=== PATIENT | male | born 1955 | race Caucasian/White ===

== ENCOUNTER 2021-11-01 21:26 | Emergency (ER) | payer MEDICARE, MEDICAID, SELFPAY ==
[2021-11-01 21:27] VITALS: BP 119/78; PULSE 54; RESP 16; TEMP 36.4; O2SAT 97; BMI 24.3
--- NOTE | 2021-11-01 21:34 | CT_ITS ---
EXAM: CT Cervical Spine Without Intravenous Contrast CLINICAL INDICATION: 66 years old, Male; FALL TECHNIQUE: Helically acquired images were obtained of the cervical spine without intravenous contrast. 2D reformatted images were reviewed. This CT exam was performed using one or more of the following dose reduction techniques: automated exposure control, adjustment of the mA and/or kV according to patient size, and/or use of iterative reconstruction technique. This report was created using [employer] technology. COMPARISON: None. FINDINGS: Vertebrae: Unremarkable. No fracture. No traumatic subluxation. No discrete lytic or blastic abnormality. Normal alignment. Normal craniocervical junction and cervicothoracic junction. Discs/spinal canal/neural foramina: Degenerative disc disease lower cervical spine. No critical stenosis. Soft tissues: Unremarkable. No prevertebral soft tissue swelling. Vasculature: Atherosclerotic disease. Lymph nodes: Unremarkable. No cervical adenopathy. Lung apices: Unremarkable as visualized. Clear. CT/Spine Cervical without Contras IMPRESSION: No acute findings in the cervical spine. Degenerative changes as described. Electronically Signed: Gulshan Granados MD at 22:49 EST Tel , Service support ,
--- NOTE | 2021-11-01 21:34 | CT_ITS ---
STUDY: CT BRAIN WITHOUT CONTRAST REASON FOR EXAM: Male, 66 years old. LACERATION TO NOSE AND INNER LT EYEBROW,ETOH,INABILITY TO WALK UNASSISTED RADIATION DOSAGE (If Supplied By Facility): CTDIvol = ( 44.99 ) mGy, DLP = ( 863.60 ) mGycm TECHNIQUE: Transaxial CT imaging of the brain was performed without administration of intravenous contrast material. Individualized dose optimization techniques were used for this CT. COMPARISON: None. FINDINGS: Normal soft tissue structures. Normal calvarium. 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 There is mild cerebral atrophy with widening of the extra-axial spaces and ventricular dilatation. Normal white matter tracts of the cerebral hemispheres. Normal basal ganglia and thalami. Normal brainstem. Normal cerebellum. There is no intracranial hemorrhage. There are no findings of an acute ischemic infarction. Normal visualized paranasal sinuses. CT/Brain/Head without Contrast IMPRESSION: Chronic involutional changes of the brain. Electronically Signed: Severo Castro MD at 23:24 EST , Service support ,
--- NOTE | 2021-11-02 02:30 | EDS_ITS ---
HPI History of Present Illness Chief Complaint: Laceration Narrative Narrative: Patient is a 66-year-old male who states that he was walking when he tripped and fell striking his head/face. He denies any loss of consciousness or blood thinner use. He states that he is concerned he may need sutures because of the injury and secondary to this presents for evaluation. [facility] Medical History (Updated 11/02/21 @ 02:[address] Omar Norman, DO) HTN (hypertension) Allergy/AdvReac Type Severity Reaction Status Date / Time No Known Allergies Allergy Verified 11/01/21 21:26 Social History (Updated 11/01/21 @ 21:30 by Alicia Tejada) Smoking Status: Current every day smoker tobacco type: cigarettes alcohol intake: current ROS ROS ED Constitutional Constitutional ED: Denies chills or fever(s) Eyes Eyes: Denies change in vision ENT ENT ED: Denies sore throat Cardiovascular Cardiovascular: Denies chest pain Respiratory/Chest Respiratory/Chest: Denies cough or dyspnea Gastrointestinal Gastrointestinal: Denies abdominal pain, diarrhea, nausea or vomiting Genitourinary Genitourinary ED: Denies dysuria Musculoskeletal Musculoskeletal: Denies back pain, myalgias or neck pain Integumentary Reports other Details: Positive facial laceration ; Denies rash Neurologic Neurologic: Denies headache(s) Hematologic/Lymphatic Hematologic/Lymphatic: Denies easy bleeding or easy bruising EXAM Physical Exam Const Vital Signs: 11/01/21 21:27 11/02/21 02:38 Temperature 97.6 F L Temperature Source Temporal Pulse Rate 54 L 79 Respiratory Rate 16 18 Blood Pressure 119/78 114/68 Blood Pressure Mean 91 Pulse Ox 97 96 Oxygen Delivery Method Room Air Positive well nourished and well developed General Appearance ED: well developed HEENT Reports moist mucous membranes HEENT Narrative: Patient has a linear subcutaneous layer deep laceration along the midportion of the forehead. The wound is 2.5 cm in length. There is minimal ooze of blood and no foreign body. No signs of depressed or basilar skull fracture. Patient also has mild soft tissue swelling and a superficial abrasion to the bridge of the nose. No septal hematoma noted Eyes PERRL and EOMs intact bilaterally Eyes Narrative: No hyphema Neck supple Neck Narrative: No bony deformity or step-off of the cervical spine no midline pain with palpation Chest Wall palpation of chest normal Resp normal respiratory effort and clear to auscultation bilaterally Cardio regular rate and regular rhythm GI normal to inspection, nondistended, normoactive bowel sounds, non-tender, non- distended and no masses Auscultation: normoactive bowel sounds Palpation: soft Back/Spine Back/Spine Narrative: No bony deformity or step-off of the thoracic or lumbar spine no midline pain with palpation Extremity normal to inspection Neuro oriented x3 and CN's II-XII intact bilaterally Sensorium / Orientation: alert Motor Exam: strength 5/5 throughout Psych mental status grossly normal Skin no rashes or lesions noted Skin Narrative: Laceration to the forehead as documented above MDM MDM MDM Narrative Medical decision making narrative: Patient reported a mechanical fall so I felt no need for cardiac or syncope work-up. With the head trauma CTs were obtained which revealed no acute traumatic finding. Therefore the patient's wound was closed as documented below. Following this as the wound has been closed and there are no underlying traumatic findings he is safe for discharge Patient had his forehead wound cleaned with chlorhexidine. It was anesthetized with 5 mils of 2% lidocaine with epinephrine in local fashion. The wound was copiously irrigated with normal saline. Then eight 5-0 Ethilon sutures were placed in simple interrupted fashion. This brought the wound together good approximation. Patient tolerated procedure well without complication Radiography Diagnostic Testing: Clinical Impression(s) from Imaging Studies Brain CT 11/01/21 21:34 IMPRESSION: Chronic involutional changes of the brain. Electronically Signed: Severo Castro MD at 23:24 EST , Service support , Cervical Spine CT 11/01/21 21:34 IMPRESSION: No acute findings in the cervical spine. Degenerative changes as described. Electronically Signed: Gulshan Granados MD at 22:49 EST Tel , Service support , Discharge Plan Triage Chief Complaint: Laceration ED Provider: Omar Norman Dx/Rx/DC Orders Clinical Impression: Closed head injury, Facial laceration Instructions: ED Head Injury (Adult), ED Laceration: All Closures Primary Care Provider: Care Physician,No Primary Referrals: Darshan Wilkerson MD [STAFF PHYSICIAN] - 5-7 Days Care Physician,No Primary [Primary Care Provider] - Activity Restrictions/Additional Instructions: Please see your family doctor or return to the ER in 5 to 7 days for suture removal Disposition Disposition: Home, Self Care Discharge Date/Time: 11/02/21 02:38
[2021-11-02 02:38] VITALS: BP 114/68; PULSE 79; RESP 18; O2SAT 96
== END 2021-11-02 02:38 | disposition home or self-care (01) ==
PROVIDERS: Emergency Provider Emergency Medicine
DX: S01.21XA Laceration without foreign body of nose, initial encounter (principal); S01.81XA Laceration without foreign body of other part of head, initial encounter; W01.0XXA Fall on same level from slipping, tripping and stumbling without subsequent striking against object, initial encounter; Y93.01 Activity, walking, marching and hiking; F17.210 Nicotine dependence, cigarettes, uncomplicated; I10 Essential (primary) hypertension; M47.812 Spondylosis without myelopathy or radiculopathy, cervical region
CPT/HCPCS: 12011; 70450; 72125; 99285

== ENCOUNTER 2021-11-08 09:13 | Emergency (ER) | payer MEDICARE, MEDICAID, SELFPAY ==
[2021-11-08 09:13] VITALS: BP 171/92; PULSE 88; RESP 18; TEMP 36.7; O2SAT 96; BMI 25.1
--- NOTE | 2021-11-08 10:36 | EX.ED.DYSGE1 ---
HPI History of Present Illness Chief Complaint: Suture Remv Narrative Narrative: 66-year-old male presenting for suture removal. He apparently had a laceration to the left side of his forehead 6 days ago. He states his wound is been healing well. No drainage or discharge. No erythema. No systemic signs or symptoms. [facility] Medical History HTN (hypertension) Home Medications amlodipine 10 mg PO DAILY 11/08/21 [History Last Taken Unknown] Allergy/AdvReac Type Severity Reaction Status Date / Time No Known Allergies Allergy Verified 11/08/21 09:17 Social History Smoking Status: Current every day smoker tobacco type: cigarettes alcohol intake: current ROS ROS ED Constitutional Constitutional ED: Denies chills or fever(s) Eyes Eyes: Denies blurry vision or diplopia ENT ENT ED: Denies rhinorrhea or sore throat Cardiovascular Cardiovascular: Denies chest pain or palpitations Respiratory/Chest Respiratory/Chest: Denies dyspnea Gastrointestinal Gastrointestinal: Denies abdominal pain or nausea Genitourinary Genitourinary ED: Denies dysuria or hematuria Musculoskeletal Musculoskeletal: Denies arthralgias or myalgias Integumentary Reports other Details: Laceration with sutures in place ; Denies abscess or rash Neurologic Neurologic: Denies headache(s) or weakness EXAM Physical Exam Const Vital Signs: 11/08/21 09:13 Temperature 98.0 F Temperature Source Temporal Pulse Rate 88 Respiratory Rate 18 Blood Pressure 171/92 H Blood Pressure Mean 118 Pulse Ox 96 Oxygen Delivery Method Room Air Positive well nourished General Appearance ED: NAD HEENT Reports moist mucous membranes Negative for trauma Eyes PERRL and EOMs intact bilaterally Resp normal respiratory effort and clear to auscultation bilaterally Cardio regular rate and regular rhythm Neuro oriented x3 and CN's II-XII intact bilaterally Sensorium / Orientation: alert Psych mental status grossly normal Skin Skin Narrative: Laceration to left forehead adjacent to the bridge of the nose well-healing. Wound margins are approximated. [address] MDM MDM MDM Narrative Medical decision making narrative: 66-year-old male presenting with need for suture removal. Per previous ER physician's note 8 sutures were placed. I only see 6. Patient denies removing any sutures. Patient's wound was cleaned. Suture removal kit was used to remove all 6 sutures. Patient tolerated procedure well. Dressing was placed over the wound. He is given wound care instructions and return precautions. Patient stable for discharge. Impression: 1. Suture removal Lab Data Attestation: I reviewed the patient's lab results. Discharge Plan Triage Chief Complaint: Suture Remv ED Provider: Danilo Sumner Dx/Rx/DC Orders Instructions: ED Stitches/Staple Removal No ... Prescriptions: No Action amlodipine 10 mg tablet 10 mg PO DAILY RF: 0 Primary Care Provider: Care Physician,No Primary Referrals: Care Physician,No Primary [Primary Care Provider] - Disposition Disposition: Home, Self Care Discharge Date/Time: 11/08/21 10:16
== END 2021-11-08 10:16 | disposition home or self-care (01) ==
LOC: ED 10:01
PROVIDERS: Emergency Provider Student in an Organized Health Care Education/Training Program
DX: Z48.02 Encounter for removal of sutures (principal); I10 Essential (primary) hypertension; F17.210 Nicotine dependence, cigarettes, uncomplicated; Z79.899 Other long term (current) drug therapy
CPT/HCPCS: 99283

== ENCOUNTER 2022-09-03 12:36 | Inpatient (IN) | payer MEDICARE, MEDICAID, SELFPAY ==
[2022-09-03 12:38] VITALS: BP 120/85; PULSE 94; RESP 17; TEMP 36.4; O2SAT 99; BMI 26.5
--- NOTE | 2022-09-03 13:25 | RAD_ITS ---
STUDY: X-RAY - LEFT KNEE REASON FOR EXAM: Male, 67 years old. Increasing left knee pain following injury. TECHNIQUE: 2 view(s) of the knee. COMPARISON: None. FINDINGS: Normal visualized distal femur. There is evidence of a nondisplaced fracture of the lateral tibial plateau. There is also evidence of a nondisplaced transverse fracture of the proximal fibular neck. Normal medial femorotibial compartment. Normal lateral femorotibial compartment. Normal patellofemoral articulation. Small joint effusion. 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 RAD/Knee 1 or 2 Views IMPRESSION: Nondisplaced fracture of the left lateral tibial plateau as well as the proximal left fibula with a joint effusion. Electronically Signed: Jos Burks MD at 14:05 EDT ,
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
[2022-09-03 14:07] VITALS: BP 130/72; O2SAT 98
[2022-09-03] MEDS: Diphth,Pertuss(Acell),Tet Vac 0.5 ML Vial IM (14:12)
--- NOTE | 2022-09-03 14:18 | CT_ITS ---
STUDY: CT LEFT KNEE WITHOUT CONTRAST REASON FOR EXAM: Male, 67 years old. Tibial plateau fracture RADIATION DOSAGE (If Supplied By Facility): CTDIvol = ( 15.35 ) mGy, DLP = ( 461.22 ) mGycm TECHNIQUE: Transaxial CT imaging of the knee was performed. Coronal and sagittal images were reformatted. Individualized dose optimization techniques were used for this CT. COMPARISON: None. FINDINGS: Normal medial femoral condyle and medial tibial plateau. There is preservation of the articular joint space of the medial knee compartment. Nondisplaced fracture involving the lateral tibial plateau extending medially from the intercondylar eminence to the lateral metaphysis of the proximal tibia. There is also evidence of a nondisplaced fracture of the fibular neck. There is preservation of the articular joint space of the lateral knee compartment. Normal proximal tibiofibular articulation. Joint effusion. The quadriceps tendon is grossly normal. The patellar tendon is grossly normal. Normal Hoffa''s fat pad. Soft tissue swelling. CT/Extremity Lower without Contra IMPRESSION: Nondisplaced lateral tibial plateau fracture as described above with evidence of a joint effusion. Nondisplaced transverse fracture of the proximal fibula. Soft tissue swelling. Electronically Signed: Jos Burks MD at 14:44 EDT ,
--- NOTE | 2022-09-03 14:27 | NURSING ---
DR RIVERA FOR DR GODINEZ
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
--- NOTE | 2022-09-03 14:52 | NURSING ---
301 OBS WHITE LEFT TIBIAL PLATEAU FX, INABILITY TO AMBULATE, INABILITY TO CARE FOR SELF
[2022-09-03] MEDS: Morphine 4 MG/ML Syringe IV (14:54)
[2022-09-03] MEDS: Ondansetron 4 MG/2 ML Vial IV (14:54)
[2022-09-03 14:57] VITALS: BP 104/70; PULSE 90; RESP 17; TEMP 36.4; O2SAT 99
[2022-09-03 15:12] LABS: Absolute Lymphocyte Count 1.48 X10^3/uL (0.83-4.51); Absolute Neutrophil Count 9.2 X10^3/uL (2.0-7.7); Basophil# 0.07 X10^3/uL; Basophil% 0.6 % (0-1); Eosinophil# 0.08 X10^3/uL; Eosinophils% 0.7 % (0-5); Hematocrit 48.4 % (40-54); Hemoglobin 16.3 g/dL (13.0-16.5); Lymphocyte # 1.48 X10^3/ul (0.83-4.51); Lymphocyte % 12.3 % (19-41); Mean Corp Hgb Conc 33.7 g/dL (32-36); Mean Corpuscular Hgb 30.7 pg (27.0-32.0); Mean Corpuscular Volume 91.1 fL (80-94); Mean Platelet Vol. 9.3 fl (6.2-12.0); Monocyte# 1.18 X10^3/uL; Monocyte% 9.8 % (0-10); NRBC Flagged by Analyzer 0 % (0-5); Neutrophil # 9.19 X10^3/uL (2.7-7.7); Neutrophil % 76.1 % (47-70); Platelet Count 499 K/mm3 (150-450); RBC Distribution Width SD 53.1 fl (35.1-43.9); Red Blood Count 5.31 M/mm3 (4.6-6.2); White Blood Count 12.1 K/mm3 (4.4-11.0)
[2022-09-03 15:23] LABS: Anion Gap 11 (5-15); BUN 22 mg/dL (7-18); BUN/Creat Ratio 21.4 RATIO (10-20); Calcium,Total 9.7 mg/dL (8.5-10.1); Chloride 101 mmol/L (98-107); Creatinine, Serum 1.03 mg/dL (0.70-1.30); EST Glomerular Filtration Rate 77 mL/min (>60); Est Glom Filt Rate - Afr Amer 93 mL/min (>60); Estimated Creatinine Clearance 65.07 ml/min; Glucose 102 mg/dL (74-106); Potassium 3.5 mmol/L (3.5-5.1); Sodium Level 137 mmol/L (136-145)
[2022-09-03 15:31] VITALS: BMI 25.3
[2022-09-03 15:32] VITALS: BP 140/55; PULSE 64; RESP 16; TEMP 36.3; O2SAT 97
[2022-09-03] MEDS: Acetaminophen 325 MG Tablet 650 MG PO ×2 (16:48→20:58)
[2022-09-03] MEDS: oxyCODONE 5 MG Tablet PO (16:48)
[2022-09-03 17:12] VITALS: O2SAT 98
[2022-09-03 20:21] VITALS: BP 96/67; PULSE 78; RESP 16; TEMP 36.6; O2SAT 97
[2022-09-04] VITALS (13 sets, daily range): BP systolic 106–130; BP diastolic 51–76; PULSE 37–82; RESP 14–19; TEMP 36.2–37; O2SAT 96–100
[2022-09-04 05:01] LABS: Absolute Lymphocyte Count 2.12 X10^3/uL (0.83-4.51); Absolute Neutrophil Count 5.4 X10^3/uL (2.0-7.7); Basophil% 1.1 % (0-1); Eosinophil# 0.35 X10^3/uL; Eosinophils% 3.8 % (0-5); Hematocrit 43.3 % (40-54); Hemoglobin 14.4 g/dL (13.0-16.5); Lymphocyte # 2.12 X10^3/ul (0.83-4.51); Lymphocyte % 22.9 % (19-41); Mean Corp Hgb Conc 33.3 g/dL (32-36); Mean Corpuscular Hgb 30.8 pg (27.0-32.0); Mean Corpuscular Volume 92.5 fL (80-94); Mean Platelet Vol. 9.8 fl (6.2-12.0); Monocyte# 1.21 X10^3/uL; Monocyte% 13.1 % (0-10); NRBC Flagged by Analyzer 0 % (0-5); Neutrophil # 5.44 X10^3/uL (2.7-7.7); Neutrophil % 58.6 % (47-70); Platelet Count 453 K/mm3 (150-450); RBC Distribution Width SD 54.6 fl (35.1-43.9); Red Blood Count 4.68 M/mm3 (4.6-6.2); White Blood Count 9.3 K/mm3 (4.4-11.0)
[2022-09-04] MEDS: Mupirocin Ointment 22gm Tube 1 APPLIC TOPICAL ×3 (05:35→21:28)
[2022-09-04 05:36] LABS: ALB/GLOB Ratio 0.7 RATIO (0.9-2.4); AST(SGOT) 28 U/L (15-37); Alanine Aminotransfer ALT/SGPT 24 U/L (16-61); Alkaline Phosphatase 61 U/L (45-117); Anion Gap 9 (5-15); BUN 38 mg/dL (7-18); BUN/Creat Ratio 19.9 RATIO (10-20); Chloride 99 mmol/L (98-107); Creatinine, Serum 1.91 mg/dL (0.70-1.30); EST Glomerular Filtration Rate 38 mL/min (>60); Est Glom Filt Rate - Afr Amer 45 mL/min (>60); Estimated Creatinine Clearance 35.09 ml/min; Globulin 4.2 g/dL (2.2-4.2); Glucose 97 mg/dL (74-106); Potassium 3.4 mmol/L (3.5-5.1); Protein, Total 7.2 g/dL (6.4-8.2); Sodium Level 134 mmol/L (136-145)
[2022-09-04] MEDS: 0.9% Saline Lock 10 ML Syringe IV (08:09)
[2022-09-04] MEDS: 0.9% Normal Saline 1,000 ML 125 ML IV ×2 (08:10→16:10)
[2022-09-04] MEDS: amLODIPine 10 MG Tablet PO (10:18)
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
--- NOTE | 2022-09-04 14:02 | CASEMGMT ---
Discharge Heavy Equipment Diesel Mechanic Mary ching/armond assistant controller sent referral to [facility] and [facility] via [facility]. Will follow up. Plan: [facility] vs [facility], Waiting Acceptance Mary Sierra Discharge Heavy Equipment Diesel Mechanic
[2022-09-04] MEDS: Acetaminophen 325 MG Tablet 650 MG PO (19:24)
[2022-09-05] VITALS (13 sets, daily range): BP systolic 128–144; BP diastolic 68–90; PULSE 54–86; RESP 14–18; TEMP 36.4–36.9; O2SAT 97–981
[2022-09-05] MEDS: Mupirocin Ointment 22gm Tube 1 APPLIC TOPICAL ×3 (05:04→21:09)
[2022-09-05] MEDS: Acetaminophen 325 MG Tablet 650 MG PO ×2 (05:27→19:24)
--- NOTE | 2022-09-05 07:58 | CASEMGMT ---
Discharge Water Pollution Specialist Mary arizmendi title assistant reached out to Josette at the [facility] regarding referral. Will follow up. Plan: [facility] vs [facility], Waiting Acceptance Mary Sierra Discharge Water Pollution Specialist
--- NOTE | 2022-09-05 09:22 | CASEMGMT ---
Discharge Associate Accountant Patient 2nd choice [facility] Accepted patient. Still waiting on patient 1st choice [facility]. RADHA Martinez notified. Mary Sierra Discharge Associate Accountant
[2022-09-05] MEDS: amLODIPine 10 MG Tablet PO (09:56)
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
--- NOTE | 2022-09-05 11:48 | NURSING ---
RN and I we undid the immobilizer to observe the skin and to bathe him and we found an abrasion on his left posterior lateral thigh, Suni came in and recommended Mepilex.
[2022-09-05 12:17] LABS: Anion Gap 8 (5-15); BUN 18 mg/dL (7-18); BUN/Creat Ratio 21.2 RATIO (10-20); Calcium,Total 8.6 mg/dL (8.5-10.1); Chloride 103 mmol/L (98-107); Creatinine, Serum 0.85 mg/dL (0.70-1.30); EST Glomerular Filtration Rate 95 mL/min (>60); Est Glom Filt Rate - Afr Amer 115 mL/min (>60); Estimated Creatinine Clearance 78.84 ml/min; Glucose 102 mg/dL (74-106); Potassium 4.2 mmol/L (3.5-5.1); Sodium Level 135 mmol/L (136-145)
--- NOTE | 2022-09-05 12:27 | CASEMGMT ---
Social Work SW placed call to [facility] to check on status of referral. SW was informed that pt has been declined. [facility] has accepted pt. Physician updated on accepting facility. Pt notified. GABRIELA Castro
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
--- NOTE | 2022-09-05 14:05 | PHA.DC.MR ---
Pharmacy Service has performed discharge medication reconciliation for this patient. The patient's discharge medication list was reviewed for discrepancies and discrepancies were resolved. Home Medications amlodipine 10 mg tablet 10 mg PO DAILY bp 11/08/21 oxycodone 5 mg tablet 5 mg PO Q4H PRN PRN Pain Score 4-5 3 days #18 tabs 09/05/22
--- NOTE | 2022-09-05 16:08 | CASEMGMT ---
Social Work Per physician, pt is ready for discharge. RADHA met with pt to inform of discharge. Pt upset and does not want to leave as he does not have clothes or wallet or checkbook. Pt has no family or friends who can go to [facility] to obtain personal items. Phone call placed to [employer] and asked to speak with branch office administrator. Industrial Psychology Professor out of building and no one else available to speak with SW. Phone call to RADHA Callejas at [facility] who confirms she will assist pt in obtaining his belongings on Thursday and will provide clothes for pt over the weekend. Pt informed of this and is agreeable to discharge. Transportation arranged with [facility] via [facility] for 1999 pickup. [facility] did confirm they can provide a wheel chair with an elevating leg rest. Pt, nursing and [place] at [facility] updated on discharge time. PASRR completed in [facility]. Plan: [facility], skilled level of care GABRIELA Castro
--- NOTE | 2022-09-05 18:16 | NURSING ---
REPORT CALLED TO MOHIT HERNANDEZ
--- NOTE | 2022-09-05 19:19 | PCA ---
[facility] CALLED AND SAID THEY WILL NOT PICK PATIENT UP UNTIL 930. I CALLED AND TOLD [facility] THAT HE WILL NOT ARRIVE UNTIL 1030 TONIGHT TO NURSE JOSSIE
== END 2022-09-05 22:45 | disposition skilled nursing facility (03) | DRG 563 ==
LOC: ED 14:36 → MS3 14:48
PROVIDERS: Admitting Provider Family Medicine; Emergency Provider Emergency Medicine; PCP Nurse Practitioner; Visit Provider Student in an Organized Health Care Education/Training Program
DX: S82.142A Displaced bicondylar fracture of left tibia, initial encounter for closed fracture (principal); R62.7 Adult failure to thrive; I10 Essential (primary) hypertension; F17.210 Nicotine dependence, cigarettes, uncomplicated; S82.402A Unspecified fracture of shaft of left fibula, initial encounter for closed fracture; V40.7XXA Person on outside of car injured in collision with pedestrian or animal in traffic accident, initial encounter; Y92.410 Unspecified street and highway as the place of occurrence of the external cause
CPT/HCPCS: 36415; 73560; 73700; 80048; 80053; 85025; 87426; 90715; 97110; 97116; 97162; 97166; 97530; 97535; 99251; 99285; 99406; J7030; A4216; G0463; J2405

== ENCOUNTER 2023-09-03 23:19 | Emergency (ER) | payer MEDICARE, MEDICAID, SELFPAY ==
[2023-09-03 23:20] VITALS: BP 145/85; PULSE 54; RESP 18; TEMP 36.3; O2SAT 97; BMI 27.7
--- NOTE | 2023-09-03 23:36 | CT_ITS ---
STUDY: CT BRAIN WITHOUT CONTRAST REASON FOR EXAM: Male, 68 years old. Trauma RADIATION DOSAGE (If Supplied By Facility): CTDIvol = ( 44.99 ) mGy, DLP = ( 1452.58 ) mGycm TECHNIQUE: Transaxial CT imaging of the brain was performed without administration of intravenous contrast material. Individualized dose optimization techniques were used for this CT. Artificial intelligence picked up the meningioma within the right frontal lobe stable since prior study. COMPARISON: October 02, 2021 CT head FINDINGS: There is visualized left frontal superficial soft tissue edema. Normal calvarium. There is a right frontal well-circumscribed parafalcine mass measuring 1.9 x 1.9 cm stable since prior study compatible with a stable partially calcified meningioma. Normal white matter tracts of the cerebral hemispheres. Normal basal ganglia and thalami. Normal brainstem. There is mild cerebellar atrophy. There is no intracranial hemorrhage. There are no findings of an acute ischemic infarction. Normal visualized paranasal sinuses. CT/Brain/Head without Contrast IMPRESSION: Mild left frontal superficial soft tissue edema. No visualized acute hemorrhage infarct or edema. Stable right frontal parafalcine 1.9 x 1.9 cm partially calcified meningioma. Electronically Signed: Shiloh Chu MD at 0:41 EDT ,
--- NOTE | 2023-09-03 23:36 | CT_ITS ---
INDICATION: Trauma EXAMINATION: CT CERVICAL SPINE - CT Spine Cervical W/O Contrast Injection TECHNIQUE: Helically acquired images were obtained of the cervical spine with sagittal and coronal reconstructed images. Individualized dose optimization techniques were used for this CT. IV contrast dosage and agent: None. COMPARISON: 11/01/2021 CT. FINDINGS: VERTEBRAE: No fracture or subluxation. The craniocervical junction is unremarkable. Moderate degenerative changes, worse at C6-C7. NECK SOFT TISSUES: The prevertebral soft tissues are unremarkable. No pathologically enlarged lymph nodes. LUNG APICES: Clear. CT/Spine Cervical without Contras IMPRESSION: No fracture or subluxation. Electronically Signed: Eren Coronado DO at 0:47 EDT ,
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
[2023-09-04] MEDS: Lidocaine/Epi/Tetracaine 50 ML 1 APPLIC TOPICAL (00:05)
[2023-09-04] MEDS: Lidocaine 1% /Epi 1:100 (20ml) 20 ML Vial INFILT (02:03)
--- NOTE | 2023-09-04 02:44 | ED.RN ---
pt discharged home with friend Stanislaw. stanislaw to give ride home.
== END 2023-09-04 02:45 | disposition home or self-care (01) ==
PROVIDERS: Emergency Provider Emergency Medicine; PCP Internal Medicine; Visit Provider Emergency Medicine
DX: S01.81XA Laceration without foreign body of other part of head, initial encounter (principal); F10.129 Alcohol abuse with intoxication, unspecified; W19.XXXA Unspecified fall, initial encounter; F17.210 Nicotine dependence, cigarettes, uncomplicated; I10 Essential (primary) hypertension; S09.90XA Unspecified injury of head, initial encounter; Z79.899 Other long term (current) drug therapy
CPT/HCPCS: 12001; 70450; 72125; 99285